=== PATIENT | male | born 1930 | race Caucasian/White ===

== ENCOUNTER 2019-03-30 22:18 | Inpatient (IN) | payer MEDICAID, OTHER ==
[~2019-03-30] VITALS: Ht 177.8 cm; Wt 78.0 kg
[2019-03-30] MEDS ORDERED: MAGNESIUM SULFATE 1 GM/2 ML IVPush ONE (22:30)
[2019-03-30] MEDS ORDERED: SODIUM CHLORIDE FLUSH 10ML SYR IVF ONE (22:30)
[2019-03-30] MEDS ORDERED: methylPREDNISolone SOD SUCC 125 MG/2 ML ONE (22:39)
[2019-03-30] MEDS: methylPREDNISolone SOD SUCC 125 MG/2 ML IVPush SCH (22:48)
--- NOTE | 2019-03-30 22:54 | NUR ---
pt medicated with solumedrol, rt at bs, pt responding to meds, rr has decreased. pt on oximask 15L now. will monitor.
[2019-03-30] MEDS ORDERED: TAMS-11 PO (22:56)
[2019-03-30] MEDS ORDERED: BUDE10.22 INH (22:56)
[2019-03-30] MEDS ORDERED: ZOLP-413 PO (22:56)
[2019-03-30] MEDS ORDERED: LATA2.5D2 EACHEYE (22:56)
[2019-03-30] MEDS ORDERED: POTA20TA14 PO (22:56)
[2019-03-30] MEDS ORDERED: ASPI-496 PO (22:56)
[2019-03-30] MEDS ORDERED: UBID1CAP43 PO (22:56)
[2019-03-30] MEDS ORDERED: FERR325T75 PO (22:56)
[2019-03-30] MEDS ORDERED: FURO20TA3 PO (22:56)
[2019-03-30] MEDS ORDERED: TRAZ50TA66 PO (22:56)
[2019-03-30] MEDS ORDERED: LOSA25TA25 PO (22:56)
[2019-03-30] MEDS ORDERED: CLOB15OI TP (22:56)
[2019-03-30] MEDS ORDERED: OMEP-110 PO (22:56)
[2019-03-30] MEDS ORDERED: GABA100C PO (22:56)
[2019-03-30] MEDS ORDERED: TIOT18CA INH (22:56)
[2019-03-30] MEDS ORDERED: SODIUM CHLORIDE 0.9% 1,000 ML IV ONE (23:00)
[2019-03-30] MEDS ORDERED: MAGNESIUM SULFATE 1 GM in SODIUM CHLORIDE 0.9% 50 ML IV ONE (23:00)
[2019-03-30 23:16] LABS: MEAN CORPUSCULAR HEMOGLOBIN 30.8 pg (27.5-34.5); MEAN CORPUSCULAR HGB CONC 33.1 g/dL (33.2-36.2); MEAN CORPUSCULAR VOLUME 92.9 fL (81-97); MEAN PLATELET VOLUME 8.7 fL (7.4-10.4); PLATELET COUNT 259 x10^3/uL (130-400); RED BLOOD COUNT 3.72 x10^6/uL (4.38-5.82); RED CELL DISTRIBUTION WIDTH 14.3 % (9.4-14.8)
--- NOTE | 2019-03-30 23:22 | NUR ---
first contact with pt rt at bedside placed on vapotherm nc at 80% fio2 at 40 l min, dr mendoza at bedside, pt in nad states that he if feeling better with vapotherm nc
[2019-03-30 23:24] LABS: INTERNATIONAL NORMALIZED RATIO 1.16 (0.93-1.1); PROTHROMBIN TIME 12.1 Seconds (9.6-11.5)
[2019-03-30 23:25] LABS: ALBUMIN 2.5 g/dL (3.4-5.0); ANION GAP 12 mmol/L (5-15); CALCIUM 8.5 mg/dL (8.5-10.1); CHLORIDE 103 mmol/L (98-107)
[2019-03-30 23:27] LABS: ALANINE AMINOTRANSFERASE 20 U/L (12-78); ALKALINE PHOSPHATASE 118 U/L (45-117); TOTAL PROTEIN 7.2 g/dL (6.4-8.2)
[2019-03-30] MEDS ORDERED: LEVOFLOXACIN/PMX 750MG/150ML 150 ML IV ONE (23:30)
[2019-03-31 00:01] LABS: BASOPHILS # (AUTO) 0.09 x10^3/uL (0-0.1); BASOPHILS % (AUTO) 0 % (0-1); EOSINOPHILS # (AUTO) 0.03 x10^3/uL (0-0.4); EOSINOPHILS % (AUTO) 0 % (1-7); LYMPHOCYTES % (AUTO) 3 % (22-44); MD SCAN; MONOCYTES # (AUTO) 1.18 x10^3/uL (0.2-0.8); MONOCYTES % (AUTO) 6 % (2-9); NEUTROPHILS % (AUTO) 91 % (42-75)
[2019-03-31] MEDS ORDERED: LEVOFLOXACIN/PMX 750MG/150ML 150 ML ONE (00:03)
[2019-03-31] MEDS ORDERED: ACETAMINOPHEN 650 MG/20.3 ML UDC PO PRN (00:30)
[2019-03-31] MEDS ORDERED: MORPHINE SULFATE 4 MG/ML, 1ML IV PRN (00:30)
[2019-03-31] MEDS ORDERED: LEVOFLOXACIN/PMX 750MG/150ML 150 ML IVPB SCH (00:30)
[2019-03-31] MEDS ORDERED: ACETAMINOPHEN 650 MG SUPP PR PRN (00:30)
[2019-03-31] MEDS ORDERED: PHARMACY MAY ADJ FOR RENAL FX MC PRN (00:30)
[2019-03-31] MEDS ORDERED: ONDANSETRON 2MG/ML, 2ML IVPB PRN (00:30)
[2019-03-31] MEDS: LACTATED RINGERS 1,000 ML IV SCH ×3 (01:45→21:38)
--- NOTE | 2019-03-31 01:48 | NUR ---
ABG IS BETTER RT CHANGED VAPORTHERM SATTING NOW 30LITERS OF OYGEN FLOW WITH 90% OF OXYGEN PT IS SLEEPING PT IS CCU HOLD WILL CHANGE TO ICU BED
[2019-03-31] MEDS: methylPREDNISolone SOD SUCC 125 MG/2 ML IVPush SCH ×3 (02:29→17:49)
--- NOTE | 2019-03-31 03:40 | NUR ---
INSERT MEJIA AFTER BLADDER SCANNER DR MELISSA STATED PT HAS BIG PROSTATE AND INSERT MEJIA FOR STRICT I&O'S
[2019-03-31 03:59] LABS: MICROSCOPIC INDICATED
[2019-03-31] MEDS: ALBUTEROL/IPRATROPIUM 2.5MG/0.5MG, 3 ML NPPB SCH ×5 (04:00→22:00)
[2019-03-31] MEDS ORDERED: ALBUTEROL/IPRATROPIUM 2.5MG/0.5MG, 3 ML NPPB PRN (04:00)
[2019-03-31] MEDS ORDERED: ALBUTEROL/IPRATROPIUM 2.5MG/0.5MG, 3 ML ONE ×2 (04:06→06:36)
--- NOTE | 2019-03-31 04:20 | NUR ---
pt is in hospital ccu bed vss stable rt changed vaporderm oxygen 70% now
[2019-03-31 04:22] LABS: CULTURE INDICATED? NO
[2019-03-31] MEDS ORDERED: methylPREDNISolone SOD SUCC 125 MG/2 ML IVPush ONE (04:30)
[2019-03-31 04:35] LABS: MEAN CORPUSCULAR HEMOGLOBIN 30.9 pg (27.5-34.5); MEAN CORPUSCULAR HGB CONC 33.6 g/dL (33.2-36.2); MEAN PLATELET VOLUME 8.3 fL (7.4-10.4); PLATELET COUNT 235 x10^3/uL (130-400); RED BLOOD COUNT 3.36 x10^6/uL (4.38-5.82); RED CELL DISTRIBUTION WIDTH 14.4 % (9.4-14.8)
[2019-03-31 04:49] LABS: ANION GAP 11 mmol/L (5-15); CALCIUM 8.2 mg/dL (8.5-10.1); CHLORIDE 104 mmol/L (98-107)
[2019-03-31 04:50] LABS: CREATININE 1.77 mg/dL (0.7-1.3)
[2019-03-31] MEDS ORDERED: HEPARIN 5,000 UNITS/ML, 1ML ONE (04:57)
[2019-03-31] MEDS ORDERED: methylPREDNISolone SOD SUCC 125 MG/2 ML ONE (04:57)
[2019-03-31] MEDS: HEPARIN 5,000 UNITS/ML, 1ML SQ SCH ×3 (05:00→20:42)
[2019-03-31 05:35] LABS: MD YES
[2019-03-31 05:37] LABS: BANDS%(MANUAL) 4 % (0-7); LYMPHS% (MANUAL) 1 % (22-44); MONOS% (MANUAL) 1 % (2-9); SEG#(MANUAL) 18.89 x10^3/uL (1.8-6.8); SEGS% (MANUAL) 94 % (42-75)
[2019-03-31 05:38] LABS: <PLATELET ESTIMATE> ADEQUATE; <PLT MORPHOLOGY> NORMAL PLT MORPH; <RBC MORPHOLOGY> NORMAL
[2019-03-31] MEDS ORDERED: BUDESONIDE 0.5 MG/2 ML INHA ONE (06:36)
[2019-03-31] MEDS: BUDESONIDE 0.5 MG/2 ML INHA NPPB SCH ×2 (06:38→19:49)
--- NOTE | 2019-03-31 07:03 | NUR ---
OXYGEN FLOW WAS CHANGED BY RT CELIA PT WILL BE TRANSFERRED TO ICU
--- NOTE | 2019-03-31 07:06 | NUR ---
GIVEN REPORT TO DAMEON CONWAY PT WILL BE TRANSFERRED
[2019-03-31] MEDS ORDERED: methylPREDNISolone SOD SUCC 125 MG/2 ML IVPush SCH (09:00)
[2019-03-31] MEDS ORDERED: FAMOTIDINE 20 MG/2 ML IV SCH (09:00)
[2019-03-31] MEDS ORDERED: FUROSEMIDE 40 MG/4 ML ONE (19:30)
[2019-03-31] MEDS ORDERED: FUROSEMIDE 40 MG/4 ML IV ONE (19:30)
[2019-03-31] MEDS: LATANOPROST OPHTH 0.005%, 2.5ML EACHEYE SCH (20:42)
[2019-04-01] MEDS: methylPREDNISolone SOD SUCC 125 MG/2 ML IVPush SCH ×5 (00:04→22:53)
[2019-04-01] MEDS: ALBUTEROL/IPRATROPIUM 2.5MG/0.5MG, 3 ML NPPB SCH ×6 (02:00→20:54)
[2019-04-01 04:39] LABS: MEAN CORPUSCULAR HEMOGLOBIN 30.1 pg (27.5-34.5); MEAN CORPUSCULAR HGB CONC 32.5 g/dL (33.2-36.2); MEAN CORPUSCULAR VOLUME 92.5 fL (81-97); MEAN PLATELET VOLUME 8.6 fL (7.4-10.4); PLATELET COUNT 262 x10^3/uL (130-400); RED BLOOD COUNT 3.35 x10^6/uL (4.38-5.82); RED CELL DISTRIBUTION WIDTH 14.4 % (9.4-14.8)
[2019-04-01 04:46] LABS: ANION GAP 7 mmol/L (5-15); CALCIUM 8.6 mg/dL (8.5-10.1); CHLORIDE 105 mmol/L (98-107)
[2019-04-01 04:48] LABS: CREATININE 1.52 mg/dL (0.7-1.3)
[2019-04-01] MEDS: HEPARIN 5,000 UNITS/ML, 1ML SQ SCH ×3 (04:53→20:30)
[2019-04-01] MEDS ORDERED: AMIODARONE 900 MG in DEXTROSE 5% 482 ML IV PRN (05:00)
[2019-04-01] MEDS ORDERED: AMIODARONE 150 MG in DEXTROSE 5% 100 ML IV ONE (05:00)
[2019-04-01] MEDS ORDERED: LEVOFLOXACIN/PMX 500MG/100ML 100 ML IV SCH (05:00)
[2019-04-01] MEDS ORDERED: FILTER 0.22 MICRON IV PRN (05:00)
[2019-04-01 05:19] LABS: TROPONIN I 0.283 ng/mL (0.000-0.045)
[2019-04-01 05:46] LABS: BASOPHILS % (AUTO) 0 % (0-1); EOSINOPHILS % (AUTO) 0 % (1-7); LYMPHOCYTES # (AUTO) 0.38 x10^3/uL (1-3.4); LYMPHOCYTES % (AUTO) 2 % (22-44); MD SCAN; MONOCYTES # (AUTO) 0.57 x10^3/uL (0.2-0.8); MONOCYTES % (AUTO) 3 % (2-9); NEUTROPHILS # (AUTO) 20.81 x10^3/uL (1.8-6.8); NEUTROPHILS % (AUTO) 96 % (42-75)
[2019-04-01] MEDS: LACTATED RINGERS 1,000 ML IV SCH (06:27)
[2019-04-01] MEDS: BUDESONIDE 0.5 MG/2 ML INHA NPPB SCH ×2 (06:36→20:54)
[2019-04-01] MEDS: DOXYCYCLINE 100 MG in DEXTROSE 5% 250 ML IV SCH ×2 (09:20→20:30)
[2019-04-01] MEDS: CEFTRIAXONE PMX 1GM/50ML 50 ML IV SCH (10:52)
[2019-04-01 11:19] LABS: TROPONIN I 0.162 ng/mL (0.000-0.045)
[2019-04-01] MEDS: TAMSULOSIN 0.4 MG CAP.ER.24H PO SCH (20:30)
[2019-04-01] MEDS: LATANOPROST OPHTH 0.005%, 2.5ML EACHEYE SCH (20:31)
[2019-04-01] MEDS ORDERED: LEVOFLOXACIN/PMX 750MG/150ML 150 ML IVPB SCH (23:30)
[2019-04-02] MEDS: ALBUTEROL/IPRATROPIUM 2.5MG/0.5MG, 3 ML NPPB SCH ×6 (01:59→22:10)
[2019-04-02 04:34] LABS: MEAN CORPUSCULAR HEMOGLOBIN 30.6 pg (27.5-34.5); MEAN CORPUSCULAR HGB CONC 33.3 g/dL (33.2-36.2); MEAN CORPUSCULAR VOLUME 92.1 fL (81-97); PLATELET COUNT 305 x10^3/uL (130-400); RED BLOOD COUNT 3.64 x10^6/uL (4.38-5.82); RED CELL DISTRIBUTION WIDTH 14.7 % (9.4-14.8)
[2019-04-02 04:35] LABS: ANION GAP 10 mmol/L (5-15); CALCIUM 9.1 mg/dL (8.5-10.1); CHLORIDE 102 mmol/L (98-107); CREATININE 1.56 mg/dL (0.7-1.3)
[2019-04-02] MEDS: HEPARIN 5,000 UNITS/ML, 1ML SQ SCH ×3 (05:32→20:32)
[2019-04-02] MEDS: methylPREDNISolone SOD SUCC 125 MG/2 ML IVPush SCH ×4 (05:32→23:18)
[2019-04-02 05:57] LABS: BASOPHILS # (AUTO) 0.02 x10^3/uL (0-0.1); BASOPHILS % (AUTO) 0 % (0-1); EOSINOPHILS % (AUTO) 0 % (1-7); LYMPHOCYTES # (AUTO) 0.61 x10^3/uL (1-3.4); LYMPHOCYTES % (AUTO) 3 % (22-44); MD SCAN; MONOCYTES # (AUTO) 0.55 x10^3/uL (0.2-0.8); MONOCYTES % (AUTO) 2 % (2-9); NEUTROPHILS # (AUTO) 21.29 x10^3/uL (1.8-6.8); NEUTROPHILS % (AUTO) 95 % (42-75)
[2019-04-02] MEDS: BUDESONIDE 0.5 MG/2 ML INHA NPPB SCH ×2 (06:42→22:10)
[2019-04-02] MEDS: DOXYCYCLINE 100 MG in DEXTROSE 5% 250 ML IV SCH ×2 (08:22→20:32)
[2019-04-02] MEDS ORDERED: FUROSEMIDE 20 MG/2 ML IV ONE (09:00)
[2019-04-02] MEDS ORDERED: POTASSIUM CHLORIDE 20 MEQ TAB.ER.PRT PO ONE (09:00)
[2019-04-02] MEDS: TAMSULOSIN 0.4 MG CAP.ER.24H PO SCH (09:40)
[2019-04-02] MEDS: CEFTRIAXONE PMX 1GM/50ML 50 ML IV SCH (10:55)
[2019-04-02] MEDS: OMEPRAZOLE 20 MG CAPSULE.DR PO SCH (18:18)
[2019-04-02] MEDS: GUAIFENESIN ER 600 MG TABLET PO SCH (20:33)
[2019-04-02] MEDS: LATANOPROST OPHTH 0.005%, 2.5ML EACHEYE SCH (20:33)
[2019-04-03] MEDS: ALBUTEROL/IPRATROPIUM 2.5MG/0.5MG, 3 ML NPPB SCH ×7 (04:30→22:55)
[2019-04-03] MEDS: HEPARIN 5,000 UNITS/ML, 1ML SQ SCH ×3 (04:47→21:03)
[2019-04-03] MEDS: methylPREDNISolone SOD SUCC 125 MG/2 ML IVPush SCH (04:47)
[2019-04-03] MEDS: OMEPRAZOLE 20 MG CAPSULE.DR PO SCH ×2 (04:47→16:29)
[2019-04-03 04:55] LABS: ANION GAP 9 mmol/L (5-15); BASOPHILS % (AUTO) 0 % (0-1); CALCIUM 9.1 mg/dL (8.5-10.1); CHLORIDE 105 mmol/L (98-107); CREATININE 1.39 mg/dL (0.7-1.3); EOSINOPHILS % (AUTO) 0 % (1-7); LYMPHOCYTES # (AUTO) 0.77 x10^3/uL (1-3.4); LYMPHOCYTES % (AUTO) 6 % (22-44); MD NO; MEAN CORPUSCULAR HEMOGLOBIN 30.3 pg (27.5-34.5); MEAN CORPUSCULAR VOLUME 91.8 fL (81-97); MEAN PLATELET VOLUME 8.8 fL (7.4-10.4); MONOCYTES # (AUTO) 0.53 x10^3/uL (0.2-0.8); MONOCYTES % (AUTO) 4 % (2-9); NEUTROPHILS # (AUTO) 12.64 x10^3/uL (1.8-6.8); NEUTROPHILS % (AUTO) 91 % (42-75); PLATELET COUNT 312 x10^3/uL (130-400); RED BLOOD COUNT 3.33 x10^6/uL (4.38-5.82); RED CELL DISTRIBUTION WIDTH 14.3 % (9.4-14.8)
[2019-04-03] MEDS: BUDESONIDE 0.5 MG/2 ML INHA NPPB SCH ×2 (07:02→21:00)
[2019-04-03] MEDS: DOXYCYCLINE 100 MG in DEXTROSE 5% 250 ML IV SCH (07:43)
[2019-04-03] MEDS: TAMSULOSIN 0.4 MG CAP.ER.24H PO SCH (09:16)
[2019-04-03] MEDS: GUAIFENESIN ER 600 MG TABLET PO SCH ×2 (09:16→21:03)
[2019-04-03] MEDS: CEFTRIAXONE PMX 1GM/50ML 50 ML IV SCH (10:09)
[2019-04-03 12:17] VITALS: BP 144/75
[2019-04-03] MEDS: methylPREDNISolone SOD SUCC 40 MG/ML IVPush SCH ×2 (12:29→21:03)
[2019-04-03 14:00] VITALS: BP 130/74
[2019-04-03 18:50] VITALS: BP 148/79
[2019-04-03] MEDS: LATANOPROST OPHTH 0.005%, 2.5ML EACHEYE SCH (21:00)
[2019-04-03] MEDS: DOXYCYCLINE 100MG TABLET PO SCH (21:03)
[2019-04-04 03:01] VITALS: BP 148/80
[2019-04-04] MEDS: methylPREDNISolone SOD SUCC 40 MG/ML IVPush SCH ×2 (05:01→13:10)
[2019-04-04] MEDS: HEPARIN 5,000 UNITS/ML, 1ML SQ SCH ×3 (05:01→21:44)
[2019-04-04] MEDS: OMEPRAZOLE 20 MG CAPSULE.DR PO SCH ×2 (05:01→16:51)
[2019-04-04] MEDS: BUDESONIDE 0.5 MG/2 ML INHA NPPB SCH ×2 (07:30→19:13)
[2019-04-04] MEDS: ALBUTEROL/IPRATROPIUM 2.5MG/0.5MG, 3 ML NPPB SCH ×5 (07:30→23:25)
[2019-04-04 07:55] VITALS: BP 152/74
[2019-04-04] MEDS: DOXYCYCLINE 100MG TABLET PO SCH ×2 (08:32→21:45)
[2019-04-04] MEDS: TAMSULOSIN 0.4 MG CAP.ER.24H PO SCH (08:32)
[2019-04-04] MEDS: GUAIFENESIN ER 600 MG TABLET PO SCH ×2 (08:32→21:45)
[2019-04-04 09:27] LABS: MEAN CORPUSCULAR HEMOGLOBIN 29.6 pg (27.5-34.5); MEAN CORPUSCULAR HGB CONC 32.3 g/dL (33.2-36.2); MEAN CORPUSCULAR VOLUME 91.7 fL (81-97); MEAN PLATELET VOLUME 8.8 fL (7.4-10.4); PLATELET COUNT 405 x10^3/uL (130-400); RED BLOOD COUNT 3.75 x10^6/uL (4.38-5.82); RED CELL DISTRIBUTION WIDTH 14.4 % (9.4-14.8)
[2019-04-04 09:58] LABS: MD YES
[2019-04-04 10:10] LABS: <PLATELET ESTIMATE> INCREASED; <PLT MORPHOLOGY> NORMAL PLT MORPH; <RBC MORPHOLOGY> NORMAL; BAND#(MANUAL) 0.18 x10^3/uL; BANDS%(MANUAL) 1 % (0-7); LYMPH#(MANUAL) 0.18 x10^3/uL (1-3.4); LYMPHS% (MANUAL) 1 % (22-44); METAMYELOCYTES# (MANUAL) 0.35 x10^3/uL (0-0); METAMYELOCYTES% (MANUAL) 2 % (0-1); MONOS#(MANUAL) 0.89 x10^3/uL (0.3-2.7); MONOS% (MANUAL) 5 % (2-9); MYELOCYTES# (MANUAL) 0.18 x10^3/uL (0-0); MYELOCYTES% (MANUAL) 1 % (0-0); NRBC % (MANUAL) 1 % (0-1); REACTIVE LYMPHS # (MANUAL) 0.18 x10^3/uL (0-0); REACTIVE LYMPHS % (MANUAL) 1 % (0-0); SEG#(MANUAL) 15.75 x10^3/uL (1.8-6.8); SEGS% (MANUAL) 89 % (42-75)
[2019-04-04 10:46] LABS: ANION GAP 9 mmol/L (5-15); CALCIUM 9.1 mg/dL (8.5-10.1); CHLORIDE 105 mmol/L (98-107); CREATININE 1.49 mg/dL (0.7-1.3)
[2019-04-04] MEDS: CEFTRIAXONE PMX 1GM/50ML 50 ML IV SCH (11:04)
[2019-04-04 13:53] VITALS: BP 153/86
[2019-04-04 14:29] VITALS: BP 136/83
[2019-04-04 20:52] VITALS: BP 153/92
[2019-04-04] MEDS: LATANOPROST OPHTH 0.005%, 2.5ML EACHEYE SCH (21:00)
[2019-04-05] MEDS: methylPREDNISolone SOD SUCC 40 MG/ML IVPush SCH ×2 (00:41→12:52)
[2019-04-05 00:55] VITALS: BP 150/85
[2019-04-05] MEDS: ALBUTEROL/IPRATROPIUM 2.5MG/0.5MG, 3 ML NPPB SCH ×4 (02:28→19:41)
[2019-04-05 04:41] LABS: MEAN CORPUSCULAR HEMOGLOBIN 29.7 pg (27.5-34.5); MEAN CORPUSCULAR HGB CONC 32.2 g/dL (33.2-36.2); MEAN CORPUSCULAR VOLUME 92.3 fL (81-97); MEAN PLATELET VOLUME 8.7 fL (7.4-10.4); PLATELET COUNT 413 x10^3/uL (130-400); RED BLOOD COUNT 3.66 x10^6/uL (4.38-5.82); RED CELL DISTRIBUTION WIDTH 14.5 % (9.4-14.8)
[2019-04-05 04:50] LABS: ANION GAP 7 mmol/L (5-15); CALCIUM 9.2 mg/dL (8.5-10.1); CHLORIDE 105 mmol/L (98-107); CREATININE 1.34 mg/dL (0.7-1.3)
[2019-04-05] MEDS: HEPARIN 5,000 UNITS/ML, 1ML SQ SCH ×3 (05:52→21:10)
[2019-04-05] MEDS: OMEPRAZOLE 20 MG CAPSULE.DR PO SCH ×2 (05:52→17:28)
[2019-04-05 06:55] VITALS: BP 156/81
[2019-04-05 07:39] LABS: MD YES
[2019-04-05 07:54] LABS: <RBC MORPHOLOGY> NORMAL; BAND#(MANUAL) 0.96 x10^3/uL; BANDS%(MANUAL) 5 % (0-7); LYMPH#(MANUAL) 1.34 x10^3/uL (1-3.4); LYMPHS% (MANUAL) 7 % (22-44); METAMYELOCYTES# (MANUAL) 0.38 x10^3/uL (0-0); METAMYELOCYTES% (MANUAL) 2 % (0-1); MONOS#(MANUAL) 0.76 x10^3/uL (0.3-2.7); MONOS% (MANUAL) 4 % (2-9); MYELOCYTES# (MANUAL) 0.19 x10^3/uL (0-0); MYELOCYTES% (MANUAL) 1 % (0-0); SEG#(MANUAL) 15.47 x10^3/uL (1.8-6.8); SEGS% (MANUAL) 81 % (42-75)
[2019-04-05 07:55] LABS: <PLATELET ESTIMATE> INCREASED; <PLT MORPHOLOGY> NORMAL PLT MORPH; TOXIC GRAN 1+
[2019-04-05] MEDS: TAMSULOSIN 0.4 MG CAP.ER.24H PO SCH (08:06)
[2019-04-05] MEDS: DOXYCYCLINE 100MG TABLET PO SCH ×2 (08:06→21:09)
[2019-04-05] MEDS: GUAIFENESIN ER 600 MG TABLET PO SCH ×2 (08:06→21:09)
[2019-04-05] MEDS: BUDESONIDE 0.5 MG/2 ML INHA NPPB SCH ×2 (10:28→19:41)
[2019-04-05] MEDS: CEFTRIAXONE PMX 1GM/50ML 50 ML IV SCH (10:37)
[2019-04-05 12:27] VITALS: BP 167/85
[2019-04-05] MEDS ORDERED: GUAI600T31 PO (17:49)
[2019-04-05] MEDS ORDERED: DOXY100T PO (17:49)
[2019-04-05] MEDS ORDERED: TAMS-11 PO (17:49)
[2019-04-05] MEDS ORDERED: CEFD300C37 PO (17:49)
[2019-04-05] MEDS ORDERED: PRED20TA PO (17:50)
[2019-04-05 20:55] VITALS: BP 146/74
[2019-04-05] MEDS: LATANOPROST OPHTH 0.005%, 2.5ML EACHEYE SCH (21:00)
[2019-04-06 01:59] VITALS: BP 168/84
[2019-04-06 04:48] LABS: ANION GAP 5 mmol/L (5-15); CHLORIDE 108 mmol/L (98-107); MEAN CORPUSCULAR HEMOGLOBIN 30.5 pg (27.5-34.5); MEAN CORPUSCULAR HGB CONC 32.9 g/dL (33.2-36.2); MEAN CORPUSCULAR VOLUME 92.7 fL (81-97); MEAN PLATELET VOLUME 8.6 fL (7.4-10.4); PLATELET COUNT 416 x10^3/uL (130-400); RED BLOOD COUNT 3.64 x10^6/uL (4.38-5.82); RED CELL DISTRIBUTION WIDTH 14.6 % (9.4-14.8)
[2019-04-06] MEDS: HEPARIN 5,000 UNITS/ML, 1ML SQ SCH (06:22)
[2019-04-06] MEDS: OMEPRAZOLE 20 MG CAPSULE.DR PO SCH (06:22)
[2019-04-06] MEDS: ALBUTEROL/IPRATROPIUM 2.5MG/0.5MG, 3 ML NPPB SCH (07:00)
[2019-04-06 07:59] LABS: MD YES
[2019-04-06 08:04] LABS: BAND#(MANUAL) 0.63 x10^3/uL; BANDS%(MANUAL) 3 % (0-7); LYMPH#(MANUAL) 1.89 x10^3/uL (1-3.4); LYMPHS% (MANUAL) 9 % (22-44); METAMYELOCYTES# (MANUAL) 0.84 x10^3/uL (0-0); METAMYELOCYTES% (MANUAL) 4 % (0-1); MONOS#(MANUAL) 1.47 x10^3/uL (0.3-2.7); MONOS% (MANUAL) 7 % (2-9); MYELOCYTES# (MANUAL) 0.42 x10^3/uL (0-0); MYELOCYTES% (MANUAL) 2 % (0-0); NRBC % (MANUAL) 1 % (0-1); POLYCHROMASIA 1+; SEG#(MANUAL) 15.75 x10^3/uL (1.8-6.8); SEGS% (MANUAL) 75 % (42-75)
[2019-04-06 08:05] LABS: <PLATELET ESTIMATE> INCREASED; <PLT MORPHOLOGY> NORMAL PLT MORPH
[2019-04-06] MEDS: GUAIFENESIN ER 600 MG TABLET PO SCH (08:28)
[2019-04-06] MEDS: DOXYCYCLINE 100MG TABLET PO SCH (08:28)
[2019-04-06] MEDS: TAMSULOSIN 0.4 MG CAP.ER.24H PO SCH (08:28)
[2019-04-06 08:51] VITALS: BP 168/88
[2019-04-06] MEDS: BUDESONIDE 0.5 MG/2 ML INHA NPPB SCH (09:00)
[2019-04-06] MEDS: CEFTRIAXONE PMX 1GM/50ML 50 ML IV SCH (10:38)
[2019-04-06 11:26] VITALS: BP 157/87
== END 2019-04-06 12:00 | disposition home or self-care (01) | DRG 871 ==
LOC: ED 22:29 → EDIP 23:48 → ICU 03-31 07:30 → CCU 04-02 12:38 → 3NW 04-03 12:04 → DCLOUNGE 04-06 11:45
PROVIDERS: ADMIT Family Medicine; ATTEND Internal Medicine
PROC: 0T9B70Z Drainage of Bladder with Drainage Device, Via Natural or Artificial Opening (ICD-10-PCS; principal; 2019-03-31)
DX: A41.50 Gram-negative sepsis, unspecified (principal); I50.33 Acute on chronic diastolic (congestive) heart failure; J18.1 Lobar pneumonia, unspecified organism; J96.21 Acute and chronic respiratory failure with hypoxia; J96.22 Acute and chronic respiratory failure with hypercapnia; N17.0 Acute kidney failure with tubular necrosis; E87.4 Mixed disorder of acid-base balance; J44.0 Chronic obstructive pulmonary disease with (acute) lower respiratory infection; J44.1 Chronic obstructive pulmonary disease with (acute) exacerbation; R65.20 Severe sepsis without septic shock; D63.8 Anemia in other chronic diseases classified elsewhere; N40.0 Benign prostatic hyperplasia without lower urinary tract symptoms; E78.5 Hyperlipidemia, unspecified; I11.0 Hypertensive heart disease with heart failure; I48.91 Unspecified atrial fibrillation; R74.8 Abnormal levels of other serum enzymes; Z87.891 Personal history of nicotine dependence; Z88.0 Allergy status to penicillin; Z90.49 Acquired absence of other specified parts of digestive tract
CPT/HCPCS: 36415; 36600; 71045; 80048; 80053; 81001; 82803; 83605; 83735; 83880; 84145; 84484; 85025; 85610; 85730; 87040; 87070; 87081; 87205; 93005; 93306; 94640; 96365; 96366; 96368; 96375; G0378; J0696; J1644; J1940; J1956; J3475; J7060; J7620; J7626; J0282; J2920; J2930; J3490; J7030; J7120; J7512